=== PATIENT | female | born 1975 | race Caucasian/White ===

== ENCOUNTER 2024-05-07 07:32 | Day surgery (SDC) | payer OTHER ==
[~2024-05-07] VITALS: Ht 162.6 cm; Wt 93.0 kg
[2024-05-07] MEDS ORDERED: CYMBALTA30 MG PO (07:55)
[2024-05-07] MEDS ORDERED: GABAPENTIN300 M2 (07:55)
[2024-05-07] MEDS ORDERED: PENTOBARBITAL XX (07:58)
[2024-05-07] MEDS ORDERED: ARIPIPRAZOLE5 MG (07:59)
[2024-05-07] MEDS ORDERED: HYDROXYZ HCL50 MG PO (07:59)
[2024-05-07] MEDS ORDERED: TOPAMAX100 MG PO (07:59)
[2024-05-07] MEDS ORDERED: NABUMETONE500 MG PO (08:00)
[2024-05-07] MEDS ORDERED: METHOCARBAMOL750 MG PO (08:00)
[2024-05-07] MEDS ORDERED: VITAMIN D-32000 UNI1 (08:00)
[2024-05-07 08:01] LABS: HCG SERUM/URINE (NEG/POS) NEGATIVE (NEGATIVE)
[2024-05-07] MEDS ORDERED: VITAMIN B-121000 MCG PO (08:01)
[2024-05-07] MEDS ORDERED: LIDOCAINE HCL 1% (10MG/ML) 100 MG/10 ML MDV ONE (08:46)
[2024-05-07] MEDS ORDERED: TRIAMCINOLONE ACETONIDE 40 MG/ML ML ONE (08:48)
[2024-05-07] MEDS ORDERED: BUPIVACAINE HCL PF 0.5 % 50 MG/10 ML SDV ONE (08:48)
[2024-05-07 09:31] VITALS: BP 101/64
== END 2024-05-07 09:25 | disposition home or self-care (01) ==
LOC: ORM 07:32
PROVIDERS: ATTEND Student in an Organized Health Care Education/Training Program
DX: M46.1 Sacroiliitis, not elsewhere classified (principal); G89.4 Chronic pain syndrome
CPT/HCPCS: G0260; J3301